=== PATIENT | male | born 1980 | race Asian ===

== ENCOUNTER → 2025-04-30 10:44 | Outpatient (REF) | payer OTHER, SELFPAY ==
[2025-05-01 13:21] LABS: Mumps Virus IgG Positive; Varicella Zoster IgG (VZV) Positive
== END ==
LOC: OHS 10:44
PROVIDERS: ATTENDING PHYSICIAN Nurse Practitioner Family
DX: Z23 Encounter for immunization (principal)
CPT/HCPCS: 36415; 86480; 86706; 86735; 86762; 86765; 86787